=== PATIENT | male | born 1995 | race Caucasian/White ===

== ENCOUNTER 2018-12-17 16:15 | Emergency (ER) | payer BC, SELFPAY ==
[2018-12-17 16:26] VITALS: BP 135/86; PULSE 75; RESP 14; TEMP 36.6; O2SAT 98
--- NOTE | 2018-12-17 16:50 | W.ED.GENAD ---
Discharge Plan Disposition Patient Disposition: HOME Condition: Improving Discharge Details Chief Complaint: Epistaxis Clinical Impression: Anterior epistaxis Primary Care Provider: None,None ED Provider: Myke Downs Home Meds and New Rx's Prescriptions: Continued diphenhydramine HCl [Sleep] 25 mg Tablet 400 mg PO HS RF: 0 Discharge Instructions Instructions: Nosebleed (ED) Additional Instructions: The medication you have been using at night for sleep can cause drying of mucous membranes and therefore promote nosebleeds. I recommend you begin twice daily bacitracin or Vaseline to the nostrils indefinitely. Pinch the nose for 15 minutes if you have recurrent bleeding. Return if you have uncontrolled bleeding or any other acute concern Medical Decision Making 23-year-old male presents with intermittent and recurrent left anterior epistaxis over days time. He is well-appearing and has normal vital signs. Does admit to daily use of alcohol but no other bleeding risk factors. On exam there is a punctate area of left anterior venous oozing blood for which chemical cautery was applied. I will have the patient use bacitracin/Vaseline twice daily. He understands homecare and return precautions HPI General Mode of arrival: ambulatory. Date/Time Provider Initiated Documentation: 12/17/18 16:16. Limitations to Documentation: no limitations. Information obtained by: patient. History of Present Illness 23 year old M presents to the emergency department with the chief complaint of Left anterior epistaxis, described as similar to prior episodes, and is localized to the face and left. Patient reports no radiation. Patient started experiencing this day(s) and it has been intermittent and now resolved. No relieving factors improve symptom(s), No exacerbating factors reported . Patient notes no other symptoms.. Patient did receive the following treatments prior to arrival, none Related Data Home Medications Medication Instructions Recorded Confirmed diphenhydramine HCl [Sleep] 400 mg PO HS 12/17/18 12/17/18 Allergies Allergy/AdvReac Type Severity Reaction Status Date / Time No Known Allergies Allergy Unverified 12/17/18 16:31 General Stated Complaint: Epistaxis TIMOTEO: 3 Review of Systems Review of Systems 6 systems reviewed and otherwise negative. No bleeding difficulty. Patient drinks 12 beers per night. [facility] Medical History Heart murmur Surgical History Tonsillectomy and adenoidectomy Family History Sister Asthma Sister Mental disorder Attention deficit hyperactivity disorder Grandmother Diabetes Other Diabetes Father Hypertensive disorder, systemic arterial Hyperlipidemia Hypothyroidism Social History Smoking/Tobacco Use Status: Current every day Tobacco Type: smokeless tobacco Alcohol Intake: current Alcohol Intake frequency: 3 or more drinks per day Alcohol type: beer Drug use: Current Sobriety Do you feel safe in your relationship?: Yes Additional Social history: 1 can smokeless tobacco per day drinks 12 pack per night Exam Narrative Exam Narrative: GEN: awake, alert, oriented 3. Pleasant, well groomed, interactive. HEAD: Normocephalic, atraumatic ENT: Mucous membranes moist, oropharynx unremarkable, External ear exam unremarkable. The left anterior medial nare has an area of punctate bleeding EYES: PERRL, EOMI NECK: Full ROM, no INGRID, no menigismus CHEST/RESP: Nontender, clear to auscultation bilateral, no wheeze/rhonchi/rales CARDIOVASCULAR: RRR, no murmur, rub wolf. 2+ Rad pulse bilateral EXT: Full ROM, no edema, no rash Neuro: Grossly normal neurologic exam, conversant, interactive. Psych: Speech fluent, thoughts congruent, affect normal Course Vital Signs Temperature 36.6 C 12/17/18 16:26 Pulse 75 12/17/18 16:26 Respiratory Rate 14 12/17/18 16:26 Blood Pressure 135/86 12/17/18 16:26 Pulse Oximetry 98 12/17/18 16:26 Temperature 36.6 C 12/17/18 16:26 Temperature Source Skin 12/17/18 16:26 Pulse 75 12/17/18 16:26 Respiratory Rate 14 12/17/18 16:26 Respiratory Effort 12/17/18 16:33 Blood Pressure 135/86 12/17/18 16:26 Blood Pressure Position Sitting 12/17/18 16:26 Pulse Oximetry 98 12/17/18 16:26 Oxygen Delivery Method Room Air 12/17/18 16:26 Oxygen Flow Rate 0 12/17/18 16:26 Pain Level 8 12/17/18 16:26
--- NOTE | 2018-12-17 16:53 | ED.GENADUL_ITS ---
Discharge Plan Disposition Patient Disposition: HOME Condition: Improving Discharge Details Chief Complaint: Epistaxis Clinical Impression: Anterior epistaxis Primary Care Provider: None,None ED Provider: Myke Downs Home Meds and New Rx's Prescriptions: Continued diphenhydramine HCl [Sleep] 25 mg Tablet 400 mg PO HS RF: 0 Discharge Instructions Instructions: Nosebleed (ED) Additional Instructions: The medication you have been using at night for sleep can cause drying of mucous membranes and therefore promote nosebleeds. I recommend you begin twice daily bacitracin or Vaseline to the nostrils indefinitely. Pinch the nose for 15 minutes if you have recurrent bleeding. Return if you have uncontrolled bleeding or any other acute concern Medical Decision Making 23-year-old male presents with intermittent and recurrent left anterior epistaxis over days time. He is well-appearing and has normal vital signs. Does admit to daily use of alcohol but no other bleeding risk factors. On exam there is a punctate area of left anterior venous oozing blood for which chemical cautery was applied. I will have the patient use bacitracin/Vaseline twice daily. He understands homecare and return precautions HPI General Mode of arrival: ambulatory . Date/Time Provider Initiated Documentation: 12/17/18 16:16 . Limitations to Documentation: no limitations . Information obtained by: patient . History of Present Illness 23 year old M presents to the emergency department with the chief complaint of Left anterior epistaxis, described as similar to prior episodes, and is localized to the face and left. Patient reports no radiation. Patient started experiencing this day(s) and it has been intermittent and now resolved. No relieving factors improve symptom(s), No exacerbating factors reported . Patient notes no other symptoms.. Patient did receive the following treatments prior to arrival, none Related Data Home Medications Medication Instructions Recorded Confirmed diphenhydramine HCl [Sleep] 400 mg PO HS 12/17/18 12/17/18 Allergies Allergy/AdvReac Type Severity Reaction Status Date / Time No Known Allergies Allergy Unverified 12/17/18 16:31 General Stated Complaint: Epistaxis TIMOTEO: 3 Review of Systems Review of Systems 6 systems reviewed and otherwise negative. No bleeding difficulty. Patient drinks 12 beers per night. [facility] Medical History Heart murmur Surgical History Tonsillectomy and adenoidectomy Family History Sister Asthma Sister Mental disorder Attention deficit hyperactivity disorder Grandmother Diabetes Other Diabetes Father Hypertensive disorder, systemic arterial Hyperlipidemia Hypothyroidism Social History Smoking/Tobacco Use Status: Current every day Tobacco Type: smokeless tobacco Alcohol Intake: current Alcohol Intake frequency: 3 or more drinks per day Alcohol type: beer Drug use: Current Sobriety Do you feel safe in your relationship?: Yes Additional Social history: 1 can smokeless tobacco per day drinks 12 pack per night Exam Narrative Exam Narrative: GEN: awake, alert, oriented 3. Pleasant, well groomed, interactive. HEAD: Normocephalic, atraumatic ENT: Mucous membranes moist, oropharynx unremarkable, External ear exam unrem arkable. The left anterior medial nare has an area of punctate bleeding EYES: PERRL, EOMI NECK: Full ROM, no INGRID, no menigismus CHEST/RESP: Nontender, clear to auscultation bilateral, no wheeze/rhonchi/rales CARDIOVASCULAR: RRR, no murmur, rub wolf. 2+ Rad pulse bilateral EXT: Full ROM, no edema, no rash Neuro: Grossly normal neurologic exam, conversant, interactive. Psych: Speech fluent, thoughts congruent, affect normal Course Vital Signs Temperature 36.6 C 12/17/18 16:26 Pulse 75 12/17/18 16:26 Respiratory Rate 14 12/17/18 16:26 Blood Pressure 135/86 12/17/18 16:26 Pulse Oximetry 98 12/17/18 16:26 Temperature 36.6 C 12/17/18 16:26 Temperature Source Skin 12/17/18 16:26 Pulse 75 12/17/18 16:26 Respiratory Rate 14 12/17/18 16:26 Respiratory Effort 12/17/18 16:33 Blood Pressure 135/86 12/17/18 16:26 Blood Pressure Position Sitting 12/17/18 16:26 Pulse Oximetry 98 12/17/18 16:26 Oxygen Delivery Method Room Air 12/17/18 16:26 Oxygen Flow Rate 0 12/17/18 16:26 Pain Level 8 12/17/18 16:26
[2018-12-17] MEDS: Silver Nitrate Stick 1 EACH (17:00)
== END 2018-12-17 17:12 | disposition home or self-care (01) ==
PROVIDERS: Emergency Provider Emergency Medicine
DX: R04.0 Epistaxis (principal)
CPT/HCPCS: 30901

== ENCOUNTER 2019-08-31 19:38 | Emergency (ER) | payer BC, SELFPAY ==
[2019-08-31 19:42] VITALS: BP 141/87; PULSE 89; RESP 16; TEMP 36.9; O2SAT 98
--- NOTE | 2019-08-31 20:07 | W.ED.GENAD ---
Discharge Plan Disposition Patient Disposition: HOME Condition: Stable Discharge Details Chief Complaint: RashLesion Clinical Impression: Cellulitis Primary Care Provider: None,None ED Provider: Roshan Silver Home Meds and New Rx's Prescriptions: New amoxicillin-pot clavulanate [Augmentin] 875-125 mg tablet 1 tab PO BID Qty: 14 RF: 0 Continued diphenhydramine HCl [Sleep] 25 mg Tablet 400 mg PO HS RF: 0 Discharge Instructions Instructions: Cellulitis (ED) Additional Instructions: you should get a call with an appointment for a follow up with general surgery if you have fevers, severe worsening pain or redness spreading up the abdomen or down the leg return to the emergency department Medical Decision Making 23 yo male with no significant pmhx comes in with cc of redness in left lower groin area. No pain in the testicles or scrotum and no fevers, he states he has been squeezing the area to try and popit. He has 2x3cm of erythema in the left groin area just inferrior to the abdomen. No pain in inguinal fold or palpable hernias. There is a firm 1x1cm area in the middle that is not fluctuant and is solid, feel it is unlikely an abscess and could be cyst or an enlarged lymph node. He has no crepitus and the area is warm . Will treat as cellulitis with augmentin and have him f/u with general surgery this week for repeat exam in case he develops an abscess, return precautions given Differential Diagnosis Differential Diagnosis: cellulitis, abscess, lymphadenitis HPI General Mode of arrival: ambulatory. Date/Time Provider Initiated Documentation: 08/31/19 20:00. Limitations to Documentation: no limitations. Information obtained by: patient. History of Present Illness 23 year old M presents to the emergency department with the chief complaint of rash, described as moderate, Patient started experiencing this day(s) (3) and it has been constant. No relieving factors improve symptom(s), No exacerbating factors reported . Patient notes no other symptoms.. Related Data Home Medications Medication Instructions Recorded Confirmed diphenhydramine HCl [Sleep] 400 mg PO HS 12/17/18 12/17/18 amoxicillin-pot clavulanate 1 tab PO BID #14 tab 08/31/19 [Augmentin] Previous Rx's Medication Instructions Recorded amoxicillin-pot clavulanate 1 tab PO BID #14 tab 08/31/19 [Augmentin] Allergies Allergy/AdvReac Type Severity Reaction Status Date / Time No Known Allergies Allergy Unverified 12/17/18 16:31 General Stated Complaint: RashLesion TIMOTEO: 4 Review of Systems All systems reviewed & are unremarkable except as noted in HPI and below Constitutional Constitutional: Denies chills, Denies fever(s) and Denies weakness Cardiovascular Cardiovascular: Denies chest pain and Denies dyspnea Respiratory Respiratory: Denies cough and Denies dyspnea Gastrointestinal Gastrointestinal: Denies abdominal pain, Denies nausea and Denies vomiting Genitourinary Genitourinary: Denies dysuria Musculoskeletal Musculoskeletal: Denies joint swelling Neurologic Neurologic: Denies weakness Psychiatric Psychiatric: Denies depression Endocrine Endocrine: Denies heat intolerance [facility] Social History Smoking/Tobacco Use Status: Current every day Tobacco Type: smokeless tobacco Alcohol Intake: current Alcohol Intake frequency: 3 or more drinks per day Alcohol type: beer Drug use: Current Sobriety Substance use type: does not use Do you feel safe at home: Yes Do you feel safe in your relationship?: Yes Additional Social history: 1 can smokeless tobacco per day drinks 12 pack per night Exam Const General: no acute distress Orientation: alert HENMT Head: normal to inspection Ears: external ears normal General nose exam: external nose normal Mouth: moist mucous membranes Eyes General: appearance normal, both eyes and all related structures Neck Neck: normal visual inspection Resp Effort & Inspection: normal respiratory effort and able to speak in complete sentences Cardio Rate: regular rate Skin General skin exam: elasticity normal Neuro General: alert and oriented x3 Extrem General: normal to inspection Psych Mental Status: mental status grossly normal Course Vital Signs Vital signs: Vital Signs Temperature 36.9 C 08/31/19 19:42 Pulse 89 08/31/19 19:42 Respiratory Rate 16 08/31/19 19:42 Blood Pressure 141/87 H 08/31/19 19:42 Pulse Oximetry 98 08/31/19 19:42 Temperature 36.9 C 08/31/19 19:42 Temperature Source Oral 08/31/19 19:42 Pulse 89 08/31/19 19:42 Respiratory Rate 16 08/31/19 19:42 Respiratory Effort 08/31/19 19:49 Blood Pressure 141/87 H 08/31/19 19:42 Pulse Oximetry 98 08/31/19 19:42
[2019-08-31] MEDS: Amoxicillin 875/Clav. 125 TAB PO (20:17)
--- NOTE | 2019-09-01 06:16 | NUR.NOTE ---
referral faxed to general surgery for follow up care Nursing Note:
== END 2019-08-31 20:30 | disposition home or self-care (01) ==
LOC: ER 20:12
PROVIDERS: Emergency Provider Emergency Medicine
DX: L03.314 Cellulitis of groin (principal)
CPT/HCPCS: 99283

== ENCOUNTER 2019-11-20 16:33 | Emergency (ER) | payer BC, SELFPAY ==
--- NOTE | 2019-11-20 16:30 | DI.RAD_ITS ---
EXAM: XR THUMB LT CLINICAL HISTORY: laceration TECHNIQUE: COMPARISON: No exams were available for comparison FINDINGS: Three views were obtained. No fracture is seen. No foreign body identified. IMPRESSION:
[2019-11-20 16:36] VITALS: BP 137/83; PULSE 80; RESP 15; TEMP 37.1; O2SAT 98
--- NOTE | 2019-11-20 16:43 | ED.GENADUL_ITS ---
Discharge Plan Disposition Patient Disposition: HOME Condition: Stable Discharge Details Chief Complaint: Laceration Clinical Impression: Laceration of thumb, left Primary Care Provider: None,None ED Provider: Missy Lafleur Home Meds and New Rx's Prescriptions: No Action diphenhydramine HCl [Sleep] 25 mg Tablet 400 mg PO HS RF: 0 Discharge Instructions Instructions: Laceration (ED), Skin Adhesive Care (ED) Additional Instructions: Follow up with primary care provider in 3-5 days. Return to ED sooner if any worsening or concerns. Increase oral fluids. Allow wound to air dry at least 1 hour a day. Tissue adhesive will start to slough off in 4 to 6 days. Discharge Data Discharge Date/Time-TO BE ENTERED AT DEPARTURE: 11/20/19 17:40 Medical Decision Making Approximately 1 hour prior to arrival patient was working on his car and cut his left thumb with a saws all. There is a proximately 1 cm laceration noted to the lateral aspect of his left thumb at the base of his nail. Bleeding is controlled upon arrival. Wound edges are jagged. Has full range of motion noted to thumb. Two-point discrimination intact. Last tetanus shot was 2015. Patient has no other complaints. 1647: Wound care being performed by staffing assistant at this time, imaging ordered to rule out foreign body or bony involvement. Imaging protocol: XR Left fingers. Views: Minimum 2 views. COMPARISON: No relevant prior studies available. FINDINGS: Bones/joints: No acute fracture. Joint spaces are maintained. Soft tissues: Normal. No radiodense foreign body. IMPRESSION: No acute findings. Thank you for allowing us to participate in the care of your patient. Wound approximated with tissue adhesive, patient tolerated well. Nonadherent dressing applied. Patient discussed strict return instructions including watching for signs of infection or any concerns to return to the ED, verbalized understanding. HPI General Mode of arrival: ambulatory . Date/Time Provider Initiated Documentation: 11/20/19 16:38 . Limitations to Documentation: no limitations . Information obtained by: patient . HPI Narrative: Approximately 1 hour prior to arrival patient was working on his car and cut his left thumb with a saws all. There is a proximately 1 cm laceration noted to the lateral aspect of his left thumb at the base of his nail. Bleeding is controlled upon arrival. Wound edges are jagged. Has full range of motion noted to thumb. Two-point discrimination intact. Last tetanus shot was 2015. Patient has no other complaints Related Data Home Medications Medication Instructions Recorded Confirmed diphenhydramine HCl [Sleep] 400 mg PO HS 12/17/18 11/20/19 Allergies Allergy/AdvReac Type Severity Reaction Status Date / Time No Known Allergies Allergy Unverified 11/20/19 16:39 General Stated Complaint: Laceration TIMOTEO: 3 Review of Systems Narrative: Constitutional: Negative for weight loss, alert and oriented, well groomed, normal body habitus, appears comfortable. HEENT: Denies trauma, headaches, blurry vision, nasal discharge, sore throat, trouble swallowing. Chest: Denies chest pain, palpitations, irregular rhythm, hypertension. Respiratory: Denies Shortness of breath, cough, hemoptysis. Skin: Laceration noted to his left thumb Neuro: Denies dizziness, blurry vision, weakness, syncope, headache or facial numbness. Hematologic: Denies easy bruising, intolerance to heat or cold, hair loss. All systems reviewed & are unremarkable except as noted in HPI and below PFSH Medical History Heart murmur Surgical History Tonsillectomy and adenoidectomy 08/03 Family History Sister Asthma Sister Mental disorder OCD, anxiety Attention deficit hyperactivity disorder Grandmother Diabetes Other Diabetes Father Hypertensive disorder, systemic arterial Hyperlipidemia Hypothyroidism Social History Smoking/Tobacco Use Status: Current every day Tobacco Type: smokeless tobacco Alcohol Intake: current Alcohol Intake frequency: 3 or more drinks per day Alcohol type: beer Drug use: Current Sobriety Substance use type: does not use Do you feel safe at home: Yes Do you feel safe in your relationship?: Yes Additional Social history: 1 can smokeless tobacco per day drinks 12 pack per night Exam Narrative Exam Narrative: Constitutional: Alert and oriented x3. Appears stated age. Normal body habitus. Head: Normocephalic, no trauma. Chest: RRR, Normal S1, S2, distal pulses intact. Resp: Lungs clear to auscultation bilaterally, no wheezes, rales, or rhonchi. Musculoskeletal: Normal gait, 5/5 strength to all four extremities. Skin: Small 1 cm laceration noted to the lateral aspect of his left thumb at the base of the nail. Nailbed not involved full range of motion noted to his ross mb. Neurologic: Cranial nerves II-XII intact. Alert and oriented x 3. DTR's intact. Hematologic/Lymphatic: No ecchymosis, no lymphadenopathy. Course Vital Signs Vital signs: Vital Signs Temperature 37.1 C 11/20/19 16:36 Pulse 80 11/20/19 16:36 Respiratory Rate 15 11/20/19 16:36 Blood Pressure 137/83 11/20/19 16:36 Pulse Oximetry 98 11/20/19 16:36 Temperature 37.1 C 11/20/19 16:36 Temperature Source Temporal Artery Scan 11/20/19 16:36 Pulse 80 11/20/19 16:36 Respiratory Rate 15 11/20/19 16:36 Respiratory Effort Non-Labored 11/20/19 16:39 Blood Pressure 137/83 11/20/19 16:36 Blood Pressure Position Sitting 11/20/19 16:36 Pulse Oximetry 98 11/20/19 16:36 Oxygen Delivery Method Room Air 11/20/19 16:36 Oxygen Flow Rate 0 11/20/19 16:36 Pain Level 0 11/20/19 16:36
--- NOTE | 2019-11-20 17:04 | DI.VRAD_ITS ---
PROCEDURE INFORMATION: Exam: XR Left Finger(s) Exam date and time: 11/20/2019 4:56 PM Age: 24 years old Clinical indication: Other: Laceration TECHNIQUE: Imaging protocol: XR Left fingers. Views: Minimum 2 views. COMPARISON: No relevant prior studies available. FINDINGS: Bones/joints: No acute fracture. Joint spaces are maintained. Soft tissues: Normal. No radiodense foreign body. IMPRESSION: No acute findings. Dictated and Authenticated by: Juan Rodriguez MD. Ordering:SINGH Louis MD
== END 2019-11-20 17:40 | disposition home or self-care (01) ==
PROVIDERS: Emergency Provider Registered Nurse Emergency
DX: S61.012A Laceration without foreign body of left thumb without damage to nail, initial encounter (principal); W27.0XXA Contact with workbench tool, initial encounter
CPT/HCPCS: 12001; 73140

== ENCOUNTER 2021-10-19 08:39 | Emergency (ER) | payer BC, SELFPAY ==
[2021-10-19 08:45] VITALS: BP 144/87; PULSE 112; RESP 16; TEMP 36.8; O2SAT 96
--- NOTE | 2021-10-19 08:48 | ED.GENADUL_ITS ---
Discharge Plan Disposition Patient Disposition: HOME Condition: Stable Discharge Details Clinical Impression: Influenza A Primary Care Provider: None,None ED Provider: Jd Rangel Home Meds and New Rx's Prescriptions: New oseltamivir [Tamiflu] 75 mg capsule 75 mg PO BID 5 Days Qty: 10 0RF Discharge Instructions Instructions: Influenza (ED) Additional Instructions: Tamiflu as directed. Plenty of fluids to avoid dehydration. Forn-[id number] medications for symptomatic control. Please watch for new or worsening symptoms and return to the ER for any concerns. I have placed you on the care management list to help expedite outpatient primary care follow-up Medical Decision Making 26-year-old gentleman, non-smoker, not vaccinated against COVID, presents for flulike symptoms over the past 2 days, coworker with similar symptoms. Clinically he appears well, nontoxic, afebrile. Lungs are clear to auscultation . Given his subjective complaints, fever, body aches, cough, I believe flu is the most likely diagnosis. Will obtain FLUVID and reassess. I see no clear indication for hematologic laboratory values or chest x-ray. Influenza A positive. COVID and RSV negative. Discussed findings with patient. Will initiate Tamiflu prescription. We will also place on the care management list to expedite primary care follow-up Standard discharge and return precautions were provided. Patient understands, is agreeable to this plan, and has no additional questions or concerns upon discharge. This documentation was generated using Kloud[employer] dictation system, please disregard any oddities of phrase or misspellings. Medical Records Medical records reviewed: Yes I reviewed the patient's medical records. Lab Data Lab results reviewed: Yes I reviewed the patient's lab results. Labs: Laboratory Tests Range/Units 10/19/21 08:55 COVID-19 Source Nasopharynx SARS-CoV-2 (PCR) (Negative) Negative Influenza Type A (PCR) (Negative) Positive A Influenza Type B (PCR) (Negative) Negative RSV (PCR) (Negative) Negative HPI General Mode of arrival: ambulatory . Date/Time Provider Initiated Documentation: 10/19/21 08:40 . Limitations to Documentation: no limitations . Information obtained by: patient . History of Present Illness 26 year old M presents to the emergency department with the chief complaint of Cold, described as moderate, with intensity rated at 5. Quality is described as aching (Body aches), and is localized to the back. Patient reports no radiation. Patient started experiencing this day(s) (2) and it has been constant. improves with No relieving factors improve symptom(s), No exacerbating factors reported . Patient notes cough, fever/chills and nausea/vomiting. Patient did receive the following treatments prior to arrival, other (OTC meds) Related Data Home Medications Medication Instructions Recorded Confirmed oseltamivir 75 mg capsule (Tamiflu) 75 mg PO BID 5 Days #10 cap 10/19/21 Previous Rx's Medication Instructions Recorded oseltamivir 75 mg capsule (Tamiflu) 75 mg PO BID 5 Days #10 cap 10/19/21 Allergies Allergy/AdvReac Type Severity Reaction Status Date / Time No Known Allergies Allergy Unverified 10/19/21 08:52 General TIMOTEO: 3 Review of Systems Constitutional Constitutional: Reports fever(s), Denies headache(s) and Denies weakness ENT Ears, Nose, Mouth, and Throat: Denies headache(s), Denies neck pain and Denies sore throat Cardiovascular Cardiovascular: Denies chest pain and Denies dyspnea Respiratory Respiratory: Reports cough and Denies dyspnea Gastrointestinal Gastrointestinal: Reports abdominal pain (none now), Denies nausea and Reports vomiting (X 1 this morning) Genitourinary Genitourinary: Denies dysuria Musculoskeletal Musculoskeletal: Reports myalgias and Denies neck pain Integumentary/Breasts Skin/Breast: Denies rash Neurologic Neurologic: Denies headache(s) and Denies weakness PFSH All Active Problems (Updated 10/19/21 @ 10:22 by SHAAN Rowe) Abdominal pain (Acute) Influenza A (Acute) Medical History (Updated 10/19/21 @ 10:22 by SHAAN Rowe) Heart murmur Surgical History Tonsillectomy and adenoidectomy 08/03 Family History Sister Asthma Sister Mental disorder OCD, anxiety Attention deficit hyperactivity disorder Grandmother Diabetes Other Diabetes Father Hypertensive disorder, systemic arterial Hyperlipidemia Hypothyroidism Social History Smoking/Tobacco Use Status: Current every day Tobacco Type: smokeless tobacco Smoking risk assessment performed?: Yes Alcohol Intake: current Alcohol Intake frequency: 3 or more drinks per day Alcohol type: beer Drug use: Current Sobriety Substance use type: does not use and marijuana Do you feel safe at home: Yes Do you feel safe in your relationship?: Yes Additional Social history: 1 can smokeless tobacco per day drinks 12 pack per night Exam Const General: cooperative, healthy appearing, comfortable and no acute distress Orientation: alert, awake and oriented x3 HENMT Head: normal to inspection, normocephalic and atraumatic Ears: external ears normal, TM's normal bilaterally and EAC's normal Mouth: moist mucous membranes Throat: posterior oropharynx normal Eyes General: appearance normal, both eyes and all related structures Conjunctivae: conjunctivae normal Neck Neck: normal visual inspection, full ROM, no lymphadenopathy, no meningeal signs, trachea midline, supple and nontender Resp Effort & Inspection: normal respiratory effort, able to speak in complete sentences and cough Quality of cough: dry (mild) Auscultation: clear to auscultation bilaterally Cardio Rate: regular rate Rhythm: regular rhythm GI Palpation: soft and nontender Back/Spine/Pelvis Back: No back tenderness Skin General skin exam: no rashes or lesions noted Neuro General: patient alert, patient awake, moves all extremities and no focal motor deficits Cognition: normal cognition Speech: speech normal Sensory Exam: no sensory deficits noted Psych Appearance: grossly normal Mental Status: mental status grossly normal
[2021-10-19 09:11] VITALS: RESP 16
[2021-10-19 10:17] LABS: COVID-19 PCR Negative (Negative); Influenza A PCR Positive (Negative); Influenza B PCR Negative (Negative); RSV PCR Negative (Negative)
[2021-10-19 10:18] LABS: Source Nasopharynx
[2021-10-19 10:20] VITALS: BP 145/90; PULSE 83; RESP 16; O2SAT 97
--- NOTE | 2021-10-19 10:23 | NUR.NOTE ---
Nursing Note: PT INFO GIVEN TO CARE MANAGEMENT TO ESTABLISH PCP. CECELIA, ED
== END 2021-10-19 10:27 | disposition home or self-care (01) ==
PROVIDERS: Emergency Provider Physician Assistant
DX: J10.1 Influenza due to other identified influenza virus with other respiratory manifestations (principal); Z20.822 Contact with and (suspected) exposure to COVID-19
CPT/HCPCS: 87637; 99283

== ENCOUNTER 2022-07-27 08:50 | Emergency (ER) | payer BC, SELFPAY ==
[2022-07-27 08:56] VITALS: BP 148/86; PULSE 89; RESP 16; TEMP 36.9; O2SAT 98
--- NOTE | 2022-07-27 09:19 | ED.GENADUL_ITS ---
Discharge Plan Disposition Patient Disposition: Home Condition: Stable Discharge Details Clinical Impression: Umbilical pain Primary Care Provider: None,None ED Provider: Kali Torrez Home Meds and New Rx's Prescriptions: New cephalexin 500 mg capsule 500 mg PO QID 5 Days Qty: 20 0RF Discharge Instructions Instructions: Abdominal Pain (ED) Additional Instructions: At this time based upon your story and physical exam I see no signs of emergent abdominal pain. I suspect that you have either a fungal or bacterial infection or combination of both. Please continue to use the [id number] antifungal cream twice daily and take the antibiotic as prescribed. Please continue to monitor your symptoms and if you have any significant worsening of your symptoms or change in your condition return immediately otherwise if you are not seeing improvement by Friday please return to the emergency department for reevaluation and reconsideration of labs and CT imaging. Medical Decision Making Patient presenting to the emergency department for chief complaint of umbilical pain. He states that approximately week and a half ago he started having discomfort and started using some Vaseline. He states he is had this abdominal pain multiple times in the past and they suspected a potential yeast infection of his bellybutton. He used Vaseline for 3 days which did not resolve his symptoms so he switched to Lotrimin cream which she has been applying since then twice a day. Patient denies any fever chills, nausea vomiting, does state single episode of some bloody type drainage after attempting to clean the area otherwise having normal bowel movements, eating properly, and denies all other symptoms. Physical exam shows tenderness to palpation of the umbilical area only. No redness, no drainage, remainder of abdominal exam is unremarkable with no Astorga sign, no McBurney's point tenderness, no peritoneal findings. Given unremarkable exam I do not feel that this is any surgical or emergent abdominal pain but suspect bacterial or fungal or combination of both infection of the umbilicus. Will place patient on Keflex and encourage continued use of cephalexin with close monitoring of symptoms along with return and follow-up precautions for worsening of condition. At this time I doubt umbilical abscess, no signs of hernia, no severe or worrisome cellulitis. Patient states clear indurated standing of discharge instructions. After discussion of diagnosis and plan of care patient has no further needs, questions, or concerns and states clear understanding to return to the emergency department for any worsening symptoms. This documentation was generated using Dragon dictation system, please disregard any oddities of phrase or misspellings. HPI General Mode of arrival: ambulatory . Date/Time Provider Initiated Documentation: 07/27/22 08:52 . Limitations to Documentation: no limitations . Information obtained by: RN notes reviewed . History of Present Illness 26 year old M presents to the emergency department with the chief complaint of Abdominal pain, described as mild and similar to prior episodes, with intensity rated at 3. Quality is described as aching, and is localized to the abdomen. Patient reports no radiation. Patient started experiencing this week(s) (1.5) and it has been constant. No relieving factors improve symptom(s), No exacerbating factors reported . Patient notes no other symptoms.. Patient did receive the following treatments prior to arrival, other (Ronb-zzf-hjerytx antifungal cream) Related Data Home Medications Medication Instructions Recorded Confirmed cephalexin 500 mg capsule 500 mg PO QID 5 days #20 caps 07/27/22 Previous Rx's Medication Instructions Recorded cephalexin 500 mg capsule 500 mg PO QID 5 days #20 caps 07/27/22 Allergies Allergy/AdvReac Type Severity Reaction Status Date / Time No Known Allergies Allergy Unverified 07/27/22 09:02 General Stated Complaint: Abd Prob TIMOTEO: 4 Review of Systems Constitutional Constitutional: Denies chills, Denies fever(s) and Denies poor appetite Cardiovascular Cardiovascular: Denies chest pain and Denies dyspnea Respiratory Respiratory: Denies cough and Denies dyspnea Gastrointestinal Gastrointestinal: Reports as per HPI, Reports abdominal pain, Denies melena, Denies change in bowel habits, Denies constipation, Denies diarrhea, Denies nausea and Denies vomiting Genitourinary Genitourinary: Denies hematuria, Denies difficulty urinating, Denies urinary hesitancy, Denies urinary incontinence and Denies urinary urgency Integumentary/Breasts Skin/Breast: Reports erythema, Denies rash and Reports skin pain PFSH All Active Problems (Updated 07/27/22 @ 09:26 by Kali Torrez NP) Abdominal pain (Acute) Umbilical pain (Acute) Medical History (Updated 07/27/22 @ 09:26 by Kali Torrez NP) Heart murmur Surgical History Tonsillectomy and adenoidectomy 08/03 Family History Sister Asthma Sister Mental disorder OCD, anxiety Attention deficit hyperactivity disorder Grandmother Diabetes Other Diabetes Father Hypertensive disorder, systemic arterial Hyperlipidemia Hypothyroidism Social History Smoking/Tobacco Use Status: Former Tobacco Use Smoking risk assessment performed?: Yes Alcohol Intake: current Alcohol Intake frequency: 3 or more drinks per day Alcohol type: beer Drug use: Current Sobriety Substance use type: does not use and marijuana Do you feel safe at home: Yes Do you feel safe in your relationship?: Yes Additional Social history: 1 can smokeless tobacco per day drinks 12 pack per night Exam Const General: cooperative Orientation: alert, awake and oriented x3 Resp Effort & Inspection: normal respiratory effort and able to speak in complete sentences Auscultation: clear to auscultation bilaterally Cardio Rate: regular rate Rhythm: regular rhythm Heart Sounds: S1 normal and S2 normal GI Inspection: normal to inspection Palpation: soft, no hepatosplenomegaly, not firm, no guarding, no masses, no pulsatile masses, not rigid, no splenomegaly and tender other (Umbilicus) Auscultation: normal bowel sounds Neuro General: patient alert, patient awake, patient oriented x3, gait normal and moves all extremities Course Vital Signs Vital signs: Vital Signs Temperature 36.9 C 07/27/22 08:56 Pulse 89 07/27/22 08:56 Respiratory Rate 16 07/27/22 08:56 Blood Pressure 148/86 H 07/27/22 08:56 Pulse Oximetry 98 07/27/22 08:56 Temperature 36.9 C 07/27/22 08:56 Temperature Source Temporal Artery Scan 07/27/22 08:56 Pulse 89 07/27/22 08:56 Respiratory Rate 16 07/27/22 08:56 Respiratory Effort 07/27/22 09:00 Blood Pressure 148/86 H 07/27/22 08:56 Blood Pressure Position Sitting 07/27/22 08:56 Pulse Oximetry 98 07/27/22 08:56 Oxygen Delivery Method Room Air 07/27/22 08:56 Oxygen Flow Rate 0 07/27/22 08:56 Pain Level 3 07/27/22 09:00 PAWSS Have you Been Recently Intoxicated or Drunk Within the Last 30 days?: No Have you Ever Experienced Previous Episodes of Alcohol Withdrawal?: No Have you ever Experienced Withdrawal Seizures?: No Have you ever Experienced Delirium Tremens(DT)s?: No Have you ever undergone Alcohol Rehabilitation Treatment (i.e, inpt ot outpatient treatment programs)?: No Have you ever Experienced Blackouts?: No Have you ever Combined Alcohol with other Downers within the last 90 days?: No Have you ever Combined Alcohol with any other Substance of Abuse during the last 90 days?: No Result: 0
== END 2022-07-27 09:32 | disposition home or self-care (01) ==
PROVIDERS: Emergency Provider Nurse Practitioner Family
DX: R10.33 Periumbilical pain (principal)
CPT/HCPCS: 99283; 99284

== ENCOUNTER 2022-12-11 16:34 | Outpatient (REF) | payer BC, SELFPAY ==
[2022-12-11 20:47] LABS: Abs Immature Grans 0.02 10^3/uL (0.0-0.06); Absolute Eosinophil Count 0.33 10^3/uL (0.0-0.7); Absolute Neutrophil Count 4.74 10^3/uL (1.2-6.7); Basophils % 1.3; Eosinophils % 4.2; HCT 40.4 % (40.0-50.0); HGB 14.1 g/dL (13.5-17.5); Immature Grans % 0.3; Lymphocytes % 29.2; MCH 33.4 pg (27.0-33.0); MCHC 34.9 % (32.0-36.0); MCV 96 fL (80-95); MPV 11.8 fL (8.0-11.0); Monocytes % 5.1; Neutrophils % 59.9; Platelet Count 252 10^3/uL (130-400); RBC 4.22 10^6/uL (4.36-5.78); RDW 12.4 % (11.8-14.1); WBC 7.89 10^3/uL (4.4-10.8)
[2022-12-11 21:13] LABS: ALT 19 U/L (16-63); AST 26 U/L (15-37); Albumin 4.1 g/dL (3.4-5.0); Alkaline Phosphatase 54 U/L (46-116); Anion Gap 8.4 mmol/L (3-11); BUN 11 mg/dL (7-18); Bilirubin, Total 0.3 mg/dL (0.2-1.0); CO2 28.6 mmol/L (21.0-32.0); CREATININE 0.9 mg/dL (0.70-1.30); Calcium 9.1 mg/dL (8.5-10.1); Chloride 105 mmol/L (98-107); Estimated GFR 121.55 (mL/min/1.73m2); Glucose 97 mg/dL (74-106); Potassium 3.5 mmol/L (3.5-5.1); Sodium 142 mmol/L (136-145); TSH (W/Ref FT4) 0.98 uIU/mL (0.36-3.74); Total Protein 6.8 g/dL (6.4-8.2)
== END 2022-12-11 16:35 | disposition home or self-care (01) ==
LOC: NCHCN 16:34
PROVIDERS: Visit Provider Family Medicine
DX: Z00.00 Encounter for general adult medical examination without abnormal findings (principal); R94.6 Abnormal results of thyroid function studies; F41.8 Other specified anxiety disorders; F10.20 Alcohol dependence, uncomplicated
CPT/HCPCS: 80053; 84443; 85025